=== PATIENT | male | born 1955 | race Two or more races ===

== ENCOUNTER 2016-11-18 10:58 | Emergency (ER) | payer OTHER ==
--- NOTE | 2016-11-18 11:12 | PDOC ---
History of Present Illness <Carlos Manuel Bunch - Last Filed: 11/18/16 12:44> - General History Source: Patient Exam Limitations: Language Barrier - History of Present Illness Initial Comments: 11/18/16 11:34 [email or web address] [id number]. The pt is a 60 year old Citizen Of [place] speaking male with a PMH of HIV , HTN who presents to the ED referred from [facility] with elevated BP to 210/ 140. He doesn't have any complaints. The pt denies headache, chest pain, back pain, palpitations, vision problems, numbness, paresthesia, dizziness. The pt states that he recently came back from [facility] and he didn't take his medications for a week. He denies N/V, diarrhea, constipation, dysuria, fever. <Niecy Ley - Last Filed: 11/19/16 07:06> - General Chief Complaint: Blood Pressure Problem Stated Complaint: HIGH BLOOD PRESSURE Time Seen by Provider: 11/18/16 11:09 Past History <Carlos Manuel Bunch - Last Filed: 11/18/16 12:44> - Travel Traveled outside of the country in the last 30 days: Yes Close contact w/someone who was outside of country & ill: No Do you know what country they traveled to?: [facility] - Past Medical History Anemia: No Asthma: No Cancer: No Cardiac Disorders: No CVA: No COPD: No CHF: No Dementia: No Diabetes: No GI Disorders: No Disorders: No HTN: Yes Hypercholesterolemia: Yes (Hypertriglyceremia) Liver Disease: No Seizures: No Thyroid Disease: No - Surgical History Abdominal Surgery: No Appendectomy: No Cardiac Surgery: No Cholecystectomy: No Lung Surgery: No Neurologic Surgery: No Orthopedic Surgery: No - Psycho/Social/Smoking Cessation Hx Smoking History: Never smoked Have you smoked in the past 12 months: No Number of Cigarettes Smoked Daily: 0 Cigars Per Day: 0 Hx Alcohol Use: No Drug/Substance Use Hx: No Substance Use Type: None Hx Substance Use Treatment: No <Niecy Ley - Last Filed: 11/19/16 07:06> - Past Medical History Allergies/Adverse Reactions: Allergies Allergy/AdvReac Type Severity Reaction Status Date / Time No Known Allergies Allergy Verified 11/18/16 11:44 Home Medications: Ambulatory Orders Multivitamin [Zoo Chews] 1 each PO DAILY #20 tab.chew 06/16/16 Carvedilol 25 mg PO BID #60 tablet 07/08/16 Aspirin Coated [Ecotrin -] 81 mg PO DAILY #30 tablet.ec 11/18/16 Diltiazem [Cardizem -] 30 mg PO DAILY #30 tablet 11/18/16 Emtricita/Rilpivirine/Tenof Df [Complera Tablet] 1 each PO DAILY #30 tablet Review of Systems - Review of Systems Able to Perform ROS?: Yes Comments:: 11/18/16 11:40 REVIEW OF SYSTEMS CONSTITUTIONAL: Absent: fever, chills, diaphoresis, generalized weakness HEENT: Absent: rhinorrhea, nasal congestion, visual changes CARDIOVASCULAR: Absent: chest pain, syncope, palpitations, irregular heart rate RESPIRATORY: Absent: cough, shortness of breath, dyspnea with exertion, orthopnea, wheezing, GASTROINTESTINAL: Absent: abdominal pain, abdominal distension, nausea, vomiting, diarrhea, constipation, GENITOURINARY: Absent: dysuria, frequency, urgency, hesitancy, hematuria, flank pain, MUSCULOSKELETAL: Absent: myalgia, arthralgia, joint swelling, back pain, neck pain SKIN: Absent: rash, itching, pallor HEMATOLOGIC/IMMUNOLOGIC: Absent: easy bleeding, easy bruising, lymphadenopathy, frequent infections NEUROLOGIC: Absent: headache, focal weakness or paresthesias, dizziness, unsteady gait, seizure PSYCHIATRIC: Absent: anxiety 11/18/16 11:42 Is the patient limited Kinyarwanda proficient: Yes <Niecy Ley - Last Filed: 11/19/16 07:06> *Physical Exam - Vital Signs Last Vital Signs Temp Pulse Resp BP Pulse Ox 97.7 F 93 H 18 170/132 97 11/18/16 11:29 11/18/16 11:29 11/18/16 11:29 11/18/16 11:29 11/18/16 11:29 <Carlos Manuel Bunch - Last Filed: 11/18/16 12:44> - Physical Exam Comments: 11/18/16 11:53 GENERAL: The patient is awake, alert, and fully oriented, in no acute distress. HEAD: Normal with no signs of trauma. EYES: PERRL, extraocular movements intact, sclera anicteric, conjunctiva clear. No ptosis. ENT: Ears normal, nares patent, oropharynx clear without exudates, moist mucous membranes. NECK: Trachea midline, full range of motion, supple. LUNGS: Breath sounds equal, clear to auscultation bilaterally, no wheezes, no crackles, no accessory muscle use. HEART: Regular rate and rhythm, S1, S2 without murmur, rub or gallop. ABDOMEN: Soft, nontender, nondistended, normoactive bowel sounds, no guarding, no rebound. EXTREMITIES: 2+ pulses, warm, no edema. NEUROLOGICAL: Normal speech, no facial asymmetry, no tongue deviation, motor 5/ 5 inm all 4 extremities, sensation intact, gait nl. <Niecy Ley - Last Filed: 11/19/16 07:06> Heart Score/ECG Review #1 ECG reviewed & interpreted by me at: 11:42 General ECG Interpretation: Sinus Rhythm, Normal Rate (76), Normal Intervals ( LVH), No acute ischemic changes <Carlos Manuel Bunch - Last Filed: 11/18/16 12:44> ED Treatment Course - LABORATORY CBC & Chemistry Diagram: 11/18/16 12:03 11/18/16 12:03 - ADDITIONAL ORDERS Additional order review: Laboratory Results 11/18/16 12:12 Urine Color Colorless Urine Appearance Clear Urine pH 6.0 Ur Specific [place] 1.008 Urine Protein Negative Urine Glucose (UA) Negative Urine Ketones Negative Urine Blood 1+ H Urine Nitrite Negative Urine Bilirubin Negative Urine Urobilinogen Negative Ur Leukocyte Esterase Negative Urine RBC None Urine WBC <1 Ur Epithelial Cells Rare 11/18/16 12:03 RBC 4.63 MCV 100.0 H MCHC 33.8 RDW 19.9 H D MPV 8.7 D Neutrophils % 57.5 Lymphocytes % 32.7 Monocytes % 6.5 Eosinophils % 2.8 Basophils % 0.5 - Medications Given in the ED: ED Medications Discontinued Medications Generic Name Dose Route Start Last Admin Trade Name Freq PRN Reason Stop Dose Admin Carvedilol 25 mg 11/18/16 12:11 11/18/16 12:16 Coreg - PO 11/18/16 12:12 25 mg ONCE ONE Administration <Carlos Manuel Bunch - Last Filed: 11/18/16 12:44> - LABORATORY CBC & Chemistry Diagram: 11/18/16 12:03 11/18/16 12:03 <DariusJoseNiecy vega - Last Filed: 11/19/16 07:06> Medical Decision Making - Medical Decision Making 11/18/16 11:57 The pt presents with elevated BP. In ED his BP was 170/130. We ordered EKG, Troponins, CK-MB, CBC, CMP, UA, rechecking vital signs. CXR is not indicated. Differential diagnosis include uncontrolled HTN, ACS. <Niecy Ley - Last Filed: 11/19/16 07:06> *DC/Admit/Observation/Transfer <Carlos Manuel Bunch - Last Filed: 11/18/16 12:44> <Niecy Ley - Last Filed: 11/19/16 07:06> Diagnosis at time of Disposition: HTN (hypertension) Qualifiers: Hypertension type: essential hypertension Qualified Code(s): I10 - Essential ( primary) hypertension - Discharge Dispostion Disposition: HOME Condition at time of disposition: Stable - Prescriptions Prescriptions: Diltiazem [Cardizem -] 30 mg PO DAILY #30 tablet Aspirin Coated [Ecotrin -] 81 mg PO DAILY #30 tablet.ec - Referrals Referrals: George Boswell NP [Primary Care Provider] - - Patient Instructions Printed Discharge Instructions: DI for High Blood Pressure Additional Instructions: Activity as tolerated. Stay hydrated. Continue your medications as previously prescribed by your physician. New prescriptions for aspirin and Cardizem were sent to the pharmacy. You should follow up with your primary doctor as soon as possible regarding today's emergency department visit. Return to the emergency department for any new or concerning symptoms, particularly headache or confusion, focal weakness, vision changes or difficulty speaking, chest pain or difficulty breathing.
[2016-11-18 11:49] VITALS: TEMP 97.7; BMI 27.0
[2016-11-18] MEDS ORDERED: CARVEDILOL 25 MG TABLET (FP) PO ONE (12:11)
[2016-11-18 12:17] LABS: BASOPHIL 0.5 % (0-2.0); EOSINOPHIL 2.8 % (0-4.5); MCH 33.8 pg (25.7-33.7); MCHC 33.8 g/dl (32.0-35.9); MEAN PLT VOLUME 8.7 fl (7.5-11.1); NEUTROPHILS 57.5 % (42.8-82.8); PLATELET COUNT 198 K/MM3 (134-434); RDW 19.9 % (11.9-15.9); WHITE BLOOD COUNT 7.5 K/mm3 (4.0-10.0)
[2016-11-18] MEDS ORDERED: CARVEDILOL 12.5 MG TABLET (FP) ONE (12:17)
[2016-11-18 12:38] LABS: URINE APPEARANCE CLEAR; URINE BILIRUBIN NEGATIVE (NEGATIVE); URINE COLOR COLORLESS; URINE GLUCOSE (UA) NEGATIVE (NEGATIVE); URINE KETONE NEGATIVE (NEGATIVE); URINE LEUK ESTERASE NEGATIVE (NEGATIVE); URINE NITRITE NEGATIVE (NEGATIVE); URINE PROTEIN NEGATIVE (NEGATIVE); URINE UROBILINOGEN NEGATIVE E.U./dl (0.2-1.0)
[2016-11-18] MEDS ORDERED: dilTIAZem HCL 30 MG TABLET (FP) PO ONE (12:40)
[2016-11-18 12:41] LABS: URINE BLOOD 1+ (NEGATIVE)
[2016-11-18 12:42] LABS: URINE WBC <1 /hpf (3-5)
--- NOTE | 2016-11-18 12:43 | PDOC ---
Attending Attestation - Resident Resident Name: Niecy Ley - ED Attending Attestation I have performed the following: I have examined & evaluated the patient, The case was reviewed & discussed with the resident, I agree w/resident's findings & plan, Exceptions are as noted - HPI HPI: 11/18/16 12:41 60-year-old male with history of hypertension and HIV with known noncompliance of his hypertension meds while away on vacation for the last week presents from [facility] with elevated blood pressure, otherwise asymptomatic. - Physicial Exam PE: 11/18/16 12:41 Vitals as noted, blood pressure improved spontaneously from [facility] measurement. Exam as noted, no findings concerning for endorgan injury - Medical Decision Making 11/18/16 12:42 Patient seen and evaluated with the resident. I agree with the overall evaluation, assessment, and management with the following summary of visit: 60-year-old male with asymptomatic elevated blood pressure in the setting of medication noncompliance. No signs or symptoms of endorgan injury on history or physical exam. Will dose his usual blood pressure medications Check labs, EKG Dispo accordingly 11/18/16 13:45 Labs are within normal limits, remains asymptomatic, wants to be discharged. Has follow-up with his primary physicians, will represcribed his Cardizem, understands return criteria. Discharge Disposition - Diagnosis HTN (hypertension) Qualifiers: Hypertension type: essential hypertension Qualified Code(s): I10 - Essential ( primary) hypertension - Discharge Dispostion Disposition: HOME Condition at time of disposition: Stable - Prescriptions Prescriptions: Diltiazem [Cardizem -] 30 mg PO DAILY #30 tablet Aspirin Coated [Ecotrin -] 81 mg PO DAILY #30 tablet.ec - Referrals Referrals: George Boswell NP [Primary Care Provider] - - Patient Instructions Printed Discharge Instructions: DI for High Blood Pressure Additional Instructions: Activity as tolerated. Stay hydrated. Continue your medications as previously prescribed by your physician. New prescriptions for aspirin and Cardizem were sent to the pharmacy. You should follow up with your primary doctor as soon as possible regarding today's emergency department visit. Return to the emergency department for any new or concerning symptoms, particularly headache or confusion, focal weakness, vision changes or difficulty speaking, chest pain or difficulty breathing. - Post Discharge Activity
[2016-11-18 12:44] LABS: TROPONIN I < 0.02 ng/ml (0.00-0.05)
[2016-11-18] MEDS ORDERED: dilTIAZem HCL 30 MG TABLET (FP) ONE (12:47)
[2016-11-18 12:51] LABS: ALBUMIN 4.1 g/dl (3.4-5.0); ALK PHOS 78 U/L (45-117); ANION GAP 9 (8-16); BILIRUBIN,TOTAL 0.9 mg/dL (0.2-1.0); CALCIUM 9.2 mg/dL (8.5-10.1); CO2 28 mmol/L (21-32); GLUCOSE,RANDOM 96 mg/dL (74-106); SGOT/AST 13 U/L (15-37); SGPT/ALT 15 U/L (12-78); TOT PROT 7.8 g/dl (6.4-8.2)
[2016-11-18 12:55] VITALS: BP 171/104; PULSE 86
--- NOTE | 2016-11-18 13:32 | EKG ---
Test Reason : Blood Pressure : / mmHG Vent. Rate : 076 BPM Atrial Rate : 076 BPM P-R Int : 134 ms QRS Dur : 086 ms QT Int : 368 ms P-R-T Axes : 045 009 013 degrees QTc Int : 414 ms NORMAL SINUS RHYTHM POSSIBLE LEFT ATRIAL ENLARGEMENT LEFT VENTRICULAR HYPERTROPHY ABNORMAL ECG NO PREVIOUS ECGS AVAILABLE Confirmed by TERESA CHANEL MD ([id number]) on 11/18/2016 1:31:54 PM Referred By: Confirmed By:TERESA CHANEL MD
== END 2016-11-18 14:00 | disposition home or self-care (01) ==
LOC: JER 10:58
DX: I10 Essential (primary) hypertension (principal); Z21 Asymptomatic human immunodeficiency virus [HIV] infection status; E78.1 Pure hyperglyceridemia
CPT/HCPCS: 36415; 80053; 81003; 81015; 82550; 82553; 84484; 85025; 93005; 93010; 99283-25

== ENCOUNTER 2018-02-04 07:57 | Day surgery (SDC) | payer OTHER ==
[2018-01-19 11:20] VITALS: BMI 26.6
--- NOTE | 2018-02-04 08:50 | HP ---
Satellite H - Chief Complaint Chief Complaint: Right inguinal hernia for many years, now extending down into the scrotum. History Source: Patient Limitations to Obtaining History: No Limitations - Past Medical History Allergies/Adverse Reactions: Allergies Allergy/AdvReac Type Severity Reaction Status Date / Time No Known Allergies Allergy Verified 11/18/16 11:44 Cardiovascular: Yes: HTN Infectious Disease: Yes: AIDS, HIV - Current Medications Current Medications: Home Medications Medication Instructions Recorded Aspirin [Aspirin EC] 81 mg PO DAILY #30 tablet. 12/23/17 Carvedilol 25 mg PO BID #60 tablet 12/23/17 Diltiazem [Cardizem -] 60 mg PO DAILY #30 tablet 12/23/17 Emtricitab/Rilpivirine/Tenofov 1 each PO DAILY #30 tablet 12/23/17 [Complera Tablet -] Fenofibrate Nanocrystallized 48 mg PO HS #30 tablet 12/23/17 [Fenofibrate] Multivit-Min/Iron Fum/Folic AC 1 each PO DAILY #30 tablet 12/23/17 [Vvsan-Imhtxas-Hgpasszb Tablet] Hamel-3 Fatty Acids/Fish Oil [Fish 1 each PO TID #30 capsule 12/23/17 Oil 1,000 mg Softgel] Hydrochlorothiazide [Hctz -] 25 mg PO DAILY 01/26/18 Satellite Physical Exam - Physical Examination Abdomen: Other (Large right inguinoscrotal hernia) Satellite Impression/Plan - Impression/Plan Impression: Right inguinoscrotal hernia , incarcerated. Plan repair of incarcerated right inguinal hernia with mesh. Operative Procedure: Repair of incarcerated right inguinal hernia with mesh. Date to be Performed: 02/04/18
--- NOTE | 2018-02-04 08:52 | HP ---
History & Physical Update - History History: No Change - Physical Physical: No Change - Plan Plan: No Change (Patient is for an ambulatory procedure, Repair of incarcerated right inguinal hernia with mesh. H/O HIV , hypertension)
[2018-02-04] MEDS ORDERED: fentaNYL CITRATE 250 MCG/5 ML VIAL ONE (09:56)
[2018-02-04] MEDS ORDERED: MIDAZOLAM HCL 2 MG/2 ML SINGLE DOSE VIAL ONE (09:56)
[2018-02-04] MEDS ORDERED: ROCURONIUM BROMIDE 50 MG/5 ML VIAL ONE (09:56)
[2018-02-04] MEDS ORDERED: PROPOFOL 20 ML ONE (09:56)
[2018-02-04] MEDS ORDERED: ONDANSETRON 4 MG/2 ML VIAL ONE ×2 (10:12→11:20)
[2018-02-04] MEDS ORDERED: ceFAZolin SODIUM 1 GM VIAL ONE (10:12)
[2018-02-04] MEDS ORDERED: DEXAMETHASONE SOD PHOSPHATE 4 MG/1 ML VIAL ONE (10:12)
[2018-02-04] MEDS ORDERED: ceFAZolin SODIUM 1 GM VIAL IVPB ONE (10:14)
[2018-02-04] MEDS ORDERED: BUPIVACAINE HCL/PF 0.25% (2.5MG/ML) 10 ML VIAL ONE (10:48)
[2018-02-04] MEDS ORDERED: GLYCOPYRROLATE 0.2 MG/1 ML VIAL ONE (11:16)
[2018-02-04] MEDS ORDERED: NEOSTIGMINE METHYLSULFATE 0.5 MG/ML - 10 ML MDV ONE (11:16)
--- NOTE | 2018-02-04 11:31 | OP ---
Operative Note - Note: Operative Date: 02/04/18 Pre-Operative Diagnosis: Incarcerated right inguinal hernia. Operation: Repair of incarcerated right inguinal hernia with plug and mesh. Findings: Very large , wide and thick sac. Indirect hernia, and direct hernia, with weak posterior wall of the inguinal canal. Post-Operative Diagnosis: Same as Pre-op Surgeon: Mandeep Tamayo Strategic Advisor: Elen Paul Anesthesia: General Specimens Removed: Indirect hernial sac. Estimated Blood Loss (mls): 5 Operative Report Dictated: Yes
[2018-02-04] MEDS ORDERED: ONDANSETRON 4 MG/2 ML VIAL IVPUSH PRN (11:39)
[2018-02-04] MEDS ORDERED: oxyCODONE HCL 5 MG TABLET PO PRN (11:39)
[2018-02-04] MEDS ORDERED: LACTATED RINGERS SOLUTION 1,000 ML IV SCH (11:45)
--- NOTE | 2018-02-04 12:04 | SURG ---
Surgery Terminal Worker Note Terminal Worker: Elen Paul PA-C Date of Service: 02/04/18 Diagnosis: Incarcerated right inguinal hernia. Procedure: Repair of incarcerated right inguinal hernia with plug and mesh. I was present for the entirety of the operative procedure. For further detail, please refer to operative report. Visit type - Case Type Case Type: Scheduled - Emergency Emergency Visit: No - New patient This patient is new to me today: Yes Date on this admission: 02/04/18
[2018-02-04 14:36] VITALS: TEMP 97.8
[2018-02-04 14:44] VITALS: BP 131/87; PULSE 62
--- NOTE | 2018-02-04 23:03 | OP ---
DATE OF OPERATION: 02/04/2018 PREOPERATIVE DIAGNOSIS: Incarcerated right inguinal hernia. POSTOPERATIVE DIAGNOSIS: Incarcerated right inguinal hernia. OPERATIVE PROCEDURE: Repair of incarcerated right inguinal hernia with plug and mesh. SURGEON: Salud Tamayo MD TELETYPE OPERATOR: ANDREA Smith ANESTHESIA: General. OPERATIVE DESCRIPTION: This 62-year-old man had presented with a large right inguinal and scrotal swelling which he had had for many years, but recently, the swelling has reached the scrotum and it is getting larger and painful. The patient was brought in for incarcerated right inguinal hernia repair. Consent was obtained. Risks, benefits, and complications had been discussed with the patient. Patient also has history of HIV, hepatitis A, hypertension, and diabetes. Patient was given antibiotics prior to the procedure. Consent was obtained. Risks, benefits, and complications were discussed. The right groin and scrotum were painted and draped. Incision was made in the right inguinal area along a skin crease. This was deepened through the skin, subcutaneous tissue, Fina fascia, and external oblique aponeurosis. The ilioinguinal nerve and iliohypogastric nerves were identified and preserved throughout the procedure. The cord structures were then isolated around 1/2-inch [place] drain. The cord structures were then exposed by incising the external and internal spermatic muscle and fascia and the cremasteric muscle. The sac was then identified, this was then from the rest of the cord structures. It was very wide, thick, and long. This was all the way down to the internal ring which was about 3 fingerbreadths in breadth. This was transfixed at the level of the internal ring with 2-0 silk suture. The contents of the sac were emptied, and there was no bowel within the sac. The sac distal to the suture ligature was excised, sent to Pathology. The peritoneum around the internal ring along with the sac and the posterior wall of the abdomen and the groin was , and the sac was pushed cephalad. A large plug was then inserted through the internal ring. The internal ring was wide, admitting 2 fingers. The plug was then placed behind the transversalis fascia by means of two 2-0 Prolene sutures. The suture was passed through the internal oblique, transverse abdominis muscle, and fascia above and medial to the ring. This was then brought through the ring, caught the outer leaf of the plug, and it was then reinserted through the internal ring and brought out through the abdominal wall adjacent to its passage through the abdominal wall. Another similar suture was obtained above and lateral to the cord. This time grabbing the lateral extent of the plug on which 2 short sutures were placed. They were pulled up, and the plug was inserted through the internal ring and placed behind the transverse abdominis muscle and fascia. Once this was done, a large plug was then interposed between the internal oblique muscle and fascia and the shelving edge of the inguinal ligament. This was anchored at the level of the pubic tubercle with 2-0 Prolene sutures. The inferior leaf of the mesh was placed against the shelving edge of the inguinal ligament and anchored with the Blink BookingTack tacking device. The superior leaf of the mesh was placed over the internal oblique muscle. The Prolene suture holding the plug behind the abdominal wall was brought through the mesh, and the knot was fastened. The lateral Prolene suture was brought through both leaves of the mesh as it came around the cord structures, and then, the knot was fastened, thus creating a new internal ring. A few tackers were then placed to tack the mesh over the internal oblique muscle. The repair was adequately performed. A new internal ring was created, and the internal ring was not tight, and the cord structures had enough room through the new internal ring. Next, 0.5% Marcaine was injected into the wound as well as in the ilioinguinal nerve and the iliohypogastric nerves. The wound was irrigated. Hemostasis was satisfactory. The wound was then closed, approximating the external oblique aponeurosis with continuous 3-0 Vicryl sutures, Fina fascia with buried interrupted 3-0 Vicryl sutures. The subcutaneous tissue again with buried interrupted 3-0 Vicryl sutures and the skin approximated with continuous 4-0 Monocryl sutures in a running subcuticular fashion. Sponge count and instrument count were correct. Estimated blood loss was 5 mL. Dermabond was applied across the skin edges. Patient tolerated the procedure well, was extubated, and sent to the recovery room in satisfactory and stable condition. Laure [id number]
--- NOTE | 2018-02-07 15:43 | PATH ---
Surgical Pathology Report Patient Name: MIGUELINA CORTEZ [facility]. Rec. #: [id number] /Age/Gender: 1955 (Age: 62) / M Account: [id number] Location: [facility] SURGICAL Taken: 02/04/2018 Received: 02/04/2018 Reported: 02/07/2018 Physicians: Salud Tamayo M.D. Specimen(s) Received HERNIA SAC Clinical History Right inguinal hernia Final Diagnosis HERNIA SAC, RESECTION: CONSISTENT HERNIA SAC. Electronically Signed Treva Card M.D. Gross Description Received in formalin labeled "hernia sac," is a 6.8 x 4.0 x 1.0 cm portion of torres morocho fibromembranous tissue, consistent with a hernia sac. Digital Project Manager sections are submitted in one cassette. /02/04/2018 saudi02/04/2018
== END 2018-02-04 14:10 | disposition home or self-care (01) ==
LOC: JASU-SURG 07:57
PROVIDERS: ATTEND Specialist
PROC: 0YU50JZ Supplement Right Inguinal Region with Synthetic Substitute, Open Approach (ICD-10-PCS; principal; 2018-02-04 09:30)
DX: K40.30 Unilateral inguinal hernia, with obstruction, without gangrene, not specified as recurrent (principal)
CPT/HCPCS: 88302-TC; 94760